=== PATIENT | male | born 1980 | race Two or more races ===

== ENCOUNTER 2019-05-24 19:38 | Emergency (ER) | payer OTHER ==
[~2019-05-24] VITALS: Ht 175.3 cm; Wt 81.0 kg
[2019-05-24] MEDS ORDERED: KETOROLAC 30MG/ML VIAL IV STA (21:29)
[2019-05-24] MEDS ORDERED: ONDANSETRON HCL 4MG/2ML INJ IV STA (21:29)
[2019-05-24] MEDS ORDERED: SODIUM CHLORIDE 0.9% 1,000 ML IV ONE ×2 (21:29→21:32)
[2019-05-24] MEDS ORDERED: PIPERACILLIN/TAZ 3.375G PREMIX 50 ML IV ONE (21:45)
[2019-05-24] MEDS ORDERED: METRONIDAZOLE 500 MG PREMIX 100 ML IV ONE (21:45)
[2019-05-24 22:06] LABS: BASOPHILS % 0.3 % (0.0-2.0); EOSINOPHILS % 2.3 % (0.0-5.0); HEMATOCRIT. 46.4 % (42.0-52.0); HEMOGLOBIN. 15.9 g/dL (14.0-18.0); LYMPHOCYTES % 8.2 % (20.0-50.0); MEAN CORPUSCULAR HEMOGLOBIN 29.9 pg (28.0-32.0); MEAN CORPUSCULAR VOLUME 87.3 fL (80.0-94.0); MEAN PLATELET VOLUME 9.9 fl (7.4-10.4); MONOCYTES % 4.2 % (2.0-8.0); PLATELET 173 x1000/uL (130-400); RED BLOOD CELL COUNT 5.32 mill/uL (4.7-6.1); RED CELL DISTRIBUTION WIDTH 13.3 % (11.6-14.6)
[2019-05-24 22:08] LABS: CHLORIDE 108 mEq/L (98-107)
[2019-05-25 01:11] VITALS: BP 119/81
== END 2019-05-25 01:12 | disposition home or self-care (01) ==
LOC: ER 19:38
DX: K52.9 Noninfective gastroenteritis and colitis, unspecified (principal); E86.0 Dehydration; R00.0 Tachycardia, unspecified; Z98.890 Other specified postprocedural states
CPT/HCPCS: 36415; 71045; 80053; 83605; 83690; 83880; 84484; 85025; 87040; 87086; 93005; 96365; 96366; 96368; 96375; 99291; J1885; J2405; J2543; J3490; J7030